=== PATIENT | female | born 1970 | race Caucasian/White ===

== ENCOUNTER → 2023-08-20 16:54 | Outpatient (REF) | payer OTHER, SELFPAY | LOC: PAVMRI 16:54 | PROVIDERS: ATTENDING PHYSICIAN Physician Assistant Surgical; FAMILY PHYSICIAN Family Medicine | DX: M54.12 Radiculopathy, cervical region (principal) | CPT/HCPCS: 72141 ==

== ENCOUNTER 2023-12-16 02:54 | Emergency (ER) | payer OTHER, SELFPAY ==
[2023-12-16 02:56] VITALS: BP 152/96
[2023-12-16 03:44] VITALS: BMI 31.0
[2023-12-16] MEDS: MOTRIN 600 MG PO (05:02)
--- NOTE | 2023-12-16 05:07 | ED.GENMED ---
History of Present Illness
<LILY Stevens - Last Filed: 12/16/23 05:26>
General
Chief Complaint: Ear Problem
Source: patient
Exam Limitations: none
Time Seen by Provider: 12/16/23 04:59
Travel History
Have you had any contact with someone who has COVID-19?: No
Do you have any symptoms of coronavirus? Fever > 100 degrees, chills, cough, shortness of breath, sore throat, loss of taste or smell, muscle aches, or headache?: No
History of Present Illness
History of Present Illness:
53 year old female with hx of c-spine bulging disc on daily tramadol who presents with worsening R ear pain x 1 week. States she initially had some ear discomfort that she thought was allergies. 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
amoxicillin 500 mg on Saturday and another dose the following day. She has not taken anything for pain. She reports runny nose and head ache. States her R face feels swollen. Reports she developed sore throat yesterday. Denies fevers/chills, cough,
chest pain, SOB, ear discharge, hearing loss, dizziness. Denies hx of chronic sinusitis or recurrent ear infections.
Past History
<LILY Stevens - Last Filed: 12/16/23 05:26>
Past History
ED Past Medical History: Other (Bulging cervical disks.); Negative Asthma, HTN, Hypercholesterolemia or NIDDM
ED Past Surgical History: None
Social History
Tobacco: Former smoker
Alcohol: None
Personal: Other ([employer] marrage of 20 years)
Living: with family
Family History
Family History: Diabetes
Review of Systems
<LILY Stevens - Last Filed: 12/16/23 05:26>
Review of Systems
Allergies reviewed?: Yes
All Other Systems: ROS reviewed and negative except as documented in HPI and ROS
Constitutional: Reports no symptoms
EENT: Reports other (R ear pain )
Respiratory: Reports no symptoms
Cardiac: Reports no symptoms
ABD/GI: Reports no symptoms
: Reports no symptoms
Musculoskeletal: Reports no symptoms
Skin: Reports no symptoms
Neurological: Reports no symptoms
Endocrine: Reports no symptoms
Hematologic/Lymphatic: Reports no symptoms
Psychiatric: Reports no symptoms
Phy Exam
<LILY Stevens - Last Filed: 12/16/23 05:26>
General Physical Exam
General Presentation: well appearing
General age: appears stated age
General Skin: warm and dry
General Habitus: normal
General Mental: alert
General Hydration: appears well hydrated
ENT Exam
ENT Exam: TM's normal, pharynx normal and other (No tenderness to palpation of R auricle or pinna. R ear canal appears swollen, no drainage or bleeding. No mastoid tenderness. No sinus tenderness. Mild R cervical lymphadenopath.)
Cardiovascular Exam
Cardiovascular Exam: regular rate/rhythm, no gallop and no murmur
Pulmonary Exam
Pulmonary Exam: lungs clear, no respiratory distress, no rales, no crackles, no rhonchi, no wheezing and no cough
Skin Exam
Skin Exam: normal color and warm/dry
Psychiatric Exam
Psychiatric Exam: normal mood/affect
Course
<LILY Stevens - Last Filed: 12/16/23 05:26>
Orders/Labs/Results
Orders:
Orders
12/16/23 05:00
Ibuprofen [Motrin] 600 mg .ROUTE .STK-MED ONE
12/16/23 05:02
Ibuprofen [Motrin] 600 mg PO NOW STA
12/16/23 05:28
Neomycin/Polymyxin/Hc [Cortisporin Otic Suspension] See Dose Instructions OTIC NOW STA
Vital Signs
Initial and Last Documented VS:
Initial Vital Signs
Temp Pulse Resp BP Pulse Ox
97.4 F 82 18 152/96 98
12/16/23 02:56 12/16/23 02:56 12/16/23 02:56 12/16/23 02:56 12/16/23 02:56
Last Documented Vital Signs
Temp Pulse Resp BP Pulse Ox
98.6 F 82 18 152/96 98
12/16/23 03:47 12/16/23 02:56 12/16/23 02:56 12/16/23 02:56 12/16/23 02:56
<Yulissa Ro DO - Last Filed: 12/16/23 05:44>
Orders/Labs/Results
Orders:
Orders
12/16/23 05:00
Ibuprofen [Motrin] 600 mg .ROUTE .STK-MED ONE
12/16/23 05:02
Ibuprofen [Motrin] 600 mg PO NOW STA
12/16/23 05:28
Neomycin/Polymyxin/Hc [Cortisporin Otic Suspension] See Dose Instructions OTIC NOW STA
Vital Signs
Initial and Last Documented VS:
Initial Vital Signs
Temp Pulse Resp BP Pulse Ox
97.4 F 82 18 152/96 98
12/16/23 02:56 12/16/23 02:56 12/16/23 02:56 12/16/23 02:56 12/16/23 02:56
Last Documented Vital Signs
Temp Pulse Resp BP Pulse Ox
98.6 F 82 18 152/96 98
12/16/23 03:47 12/16/23 02:56 12/16/23 02:56 12/16/23 02:56 12/16/23 02:56
<LILY Stevens - Last Filed: 12/16/23 05:26>
MDM/Problems Addressed
Differential Diagnosis Includes:
otitis externa, otitis media
MDM/Problems Addressed:
53 year old female whop presents with 1 week of R ear pain.
<LILY Stevens - Last Filed: 12/16/23 05:26>
*Critical Care Note
Total Time (30-74mins, 75-104mins- exclusive of procedures): Not Applicable
<Yulissa Ro DO - Last Filed: 12/16/23 05:44>
*Pulse Oximetry
Patient hypoxic: no
ED Attending Note
<LILY Stevens - Last Filed: 12/16/23 05:26>
-
Portions of this chart may have been created with voice recognition software.� Occasional wrong word or��sound alike� substitutions may have occurred due to the inherent limitations of voice recognition software.
<Yulissa Ro DO - Last Filed: 12/16/23 05:44>
ED Attending Note
Patient seen and examined by attending physician: Yes
I performed the substantive portion of visit, reviewed & personally made and approve the management plan that is documented in note by myself or JAIRON.: Yes
I performed a history and physical exam of patient and discussed management with resident, I reviewed resident's note and agree with documented findings and plan of care.: Yes
ED Attending Note:
This is a 53-year-old woman who has no significant past medical history save for chronic neck pain/cervical DJD, follows with pain management, chronically maintained on tramadol. She presents with 1 week history of right ear pain initially felt
that this was seasonal allergies in nature with intermittent mild runny nose but denies nasal congestion or sinus pain or pressure. She denies dental pain. Right ear pain has been persistent and worsening throughout the week, unrelieved with
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 She denies drainage nor decreased hearing. No history of similar episodes of ear pain.
GENERAL: 53-year-old woman appears her stated age, awake and alert, pleasant, appears in no acute distress.
EYE: Pupils are equal and round, anicteric
NECK: Supple, nontender, no meningismus, no significant adenopathy.
ENT: posterior pharynx is clear, oral mucosa is moist. Bilateral TMs are clear. Right external canal is moderately erythematous with mild stenosis, scant whitish debris within the external canal. There is very minimal erythema at the entrance to
the external canal but no papules or pustules. Moderate pain with tugging on the pinna. There is no surrounding edema nor surrounding adenopathy. Full mandible range of motion without difficulty. No dental tenderness.
CARDIAC: Regular rate and rhythm. no murmur.
LUNGS: Clear breath sounds bilaterally, no acute respiratory distress, no wheezes/rales/rhonchi
ABDOMEN: Soft, nondistended, without focal tenderness
NEUROLOGICAL: Alert and oriented x3, no focal neuro deficits. Gait is coelho and steady.
SKIN: Warm and dry, normal color, skin intact. No rash.
MUSCULOSKELETAL: No C/C/E. peripheral pulses are full and equal b/l. No palpable tenderness.
PSYCH: Normal and appropriate interaction.
Patient presents with 1 week history of right ear pain. Exam consistent with acute otitis externa.
Will treat with a course of Cortisporin otic suspension.
She has been given ibuprofen for pain and will prescribe short course of prescription strength ibuprofen.
She can continue her usual daily tramadol as well.
Prompt follow-up with PCP for recheck.
Discharge Plan
Departure
Patient Disposition: Home (Routine Discharge)
Date of Disposition: 12/16/23
Time of Disposition: 05:42
Patient with high blood pressure during this ER visit?: Yes
Condition: Good
Discharge Problem:
Acute Otitis Externa
Instructions: Outer Ear Infection (DC)
Prescriptions:
New
Cortisporin-TC 3.3-3-10-0.5 mg/mL drops,suspension
4 drp otic (ear) QID Qty: 10 0RF
Discontinued
No Current Medications
prednisone 50 MG tablet
50 mg PO Daily Qty: 4 0RF
diazepam 5 MG tablet
5 mg PO TIDPRN PRN (Reason: Pain) Qty: 15 0RF
hydrocodone-acetaminophen [Vicodin] 1 EACH tablet
1 ea PO Q4HPRN PRN (Reason: pain) Qty: 10 0RF
amoxicillin-pot clavulanate 1 TABLET tablet
1 tab PO Q12 Qty: 19 0RF
acetaminophen-codeine 1 TABLET tablet
1 tab PO Q4HPRN PRN (Reason: moderate to severe pain) Qty: 20 0RF
acetaminophen-codeine 1 TABLET tablet
1 tab PO Q4HPRN PRN (Reason: moderate to severe pain) Qty: 20 0RF
Referrals:
Jean Urias DO [Family Provider] - Call in 1-3 days for appt
Interventions
Interventions:
*Risk Screen - Suicide Last Done: 12/16/23 02:56
*General Assessment Last Done: 12/16/23 03:44
*Neglect/Abuse Screening Last Done: 12/16/23 02:56
Discharge Date and Time
Print Language: [place]IZ[place]
[2023-12-16] MEDS: CORTISPORIN OTIC SUSPENSION 1 DROP OTIC (05:54)
== END 2023-12-16 05:58 | disposition home or self-care (01) ==
LOC: EMR 02:54
PROVIDERS: EMERGENCY PHYSICIAN Emergency Medicine; FAMILY PHYSICIAN Family Medicine
DX: H60.501 Unspecified acute noninfective otitis externa, right ear (principal); R09.89 Other specified symptoms and signs involving the circulatory and respiratory systems; R51.9 Headache, unspecified; R03.0 Elevated blood-pressure reading, without diagnosis of hypertension; Z87.891 Personal history of nicotine dependence
CPT/HCPCS: 99283

== ENCOUNTER → 2024-10-23 09:09 | Outpatient (REF) | payer OTHER, SELFPAY | LOC: RCS 09:09 | PROVIDERS: ATTENDING PHYSICIAN Orthopaedic Surgery | DX: Z01.818 Encounter for other preprocedural examination (principal) | CPT/HCPCS: 93005 ==

== ENCOUNTER → 2025-01-15 11:55 | Outpatient (REF) | payer OTHER, SELFPAY | LOC: RAD 11:55 | PROVIDERS: ATTENDING PHYSICIAN Internal Medicine Rheumatology; FAMILY PHYSICIAN Family Medicine | DX: M05.79 Rheumatoid arthritis with rheumatoid factor of multiple sites without organ or systems involvement (principal); M13.0 Polyarthritis, unspecified; R76.0 Raised antibody titer | CPT/HCPCS: 73100; 73130; 73630 ==

== ENCOUNTER → 2025-02-05 13:24 | Outpatient (REF) | payer OTHER, SELFPAY | LOC: WDC 13:24 | PROVIDERS: ATTENDING PHYSICIAN Family Medicine | DX: Z12.39 Encounter for other screening for malignant neoplasm of breast (principal); Z12.31 Encounter for screening mammogram for malignant neoplasm of breast | CPT/HCPCS: 77063; 77067 ==